=== PATIENT | female | born 1990 | race Caucasian/White ===

== ENCOUNTER 2016-05-28 09:36 | Emergency (ER) | payer BC ==
--- NOTE | ~2016-05-28 | CT4 ---
[facility] A Service of [facility] & [facility] RADIOLOGY TEXT RESULTS PATIENT: SHANA FOFANA LOCATION: SED : 88 UNIT #: [id number] AGE: [address]: Saleem Ponce MD SEX: F ORDER DR: [id number] [place] [id number] E MR#: [id number] Acc #: [id number] NAME: SHANA FOFANA : 1990 SEX: F STUDY DATE/TIME: 05/26/2016 8:34 UNIT: SED ROOM: STUDY DESCRIPTION: CT Abd and Pelv Wo Cont Attending Physician: Saleem Ponce M.D. Ordering Physician: Saleem Ponce M.D. Primary Care Physician: Denise Artegaa A.P.R.N. MEDICAL IMAGING REPORT This report is preliminary unless electronic signature is present. REVISED REPORT SEE ADDENDUM EXAM CT abdomen and pelvis 05/28/2016 HISTORY Abdomen pain left lower quadrant, onset this a.m. hematuria 3+ blood on UA this morning. Negative beta HCG. TECHNIQUE This CT exam was performed with one or more of the following radiation dose reduction techniques: automatic control, adjustment of mA and/or kV according to patient size, and iterative reconstruction. FINDINGS CT abdomen and pelvis performed without administration of oral or intravenous contrast. No prior CTs for comparison. 7-8 mm subpleural nodule right lung base posterolaterally immediately adjacent to diaphragm. Inferior heart and pericardium unremarkable. Liver unremarkable. Gallbladder normal. Spleen upper limits of normal in size measuring about 13 cm in diameter. No focal splenic abnormality is seen. The pancreas, adrenal glands, right kidney and ureter are unremarkable. Left kidney shows mild hydronephrosis and hydroureter to the level of the left ureterovesical junction where there is a 4 mm calculus. No other left-sided renal or ureteral calculi. Mild periureteral inflammatory change but no periureteral or perinephric fluid collection. No indication of cystic or solid mass lesion in kidneys. CT PELVIS: No inguinal adenopathy. Urinary bladder unremarkable beyond the left ureterovesical junction calculus. The uterus is normal in appearance. No free fluid. Bilateral ovarian cysts measuring up to 2.1 cm on left and up to 4 cm on right. No free fluid. No pelvic adenopathy. [facility]. [facility] A Service of [facility] RADIOLOGY TEXT RESULTS PATIENT: SHANA FOFANA [place] [facility] [place] #: [id number] AGE: [address]: Saleem Ponce MD SEX: F ORDER DR: Small retroperitoneal portal and gastrohepatic ligament lymph nodes. In the absence of risk factors, probably in the absence of risk factors, probably benign/reactive in nature. Esophagus, stomach, small bowel, appendix, colon unremarkable. Unopacified vascular structures unremarkable. Degenerative changes in the spine. No acute-appearing bony abnormality. Chronic right L5 pars interarticularis defect. No resulting alignment abnormality. Posterior disc bulge L3-L4. Mild to moderate mass effect on the thecal sac and resulting mild to moderate central spinal canal narrowing. More pronounced central disc protrusion L4-L5. At least moderate central spinal canal narrowing. Posterior disc osteophyte complex asymmetrically more pronounced on the left L5-S1. No spinal stenosis but there is at least moderate narrowing of the left neural foramen. Exiting left L5 nerve irritation or lc impingement is a consideration. IMPRESSION 1. A 4 mm left ureterovesical junction calculus resulting in mild left hydronephrosis and hydroureter. No other renal ureteral or bladder calculi. Mild left ureteral inflammatory change but no fluid collection. No perinephric fluid collection. 2. Gallbladder, pancreas, appendix normal. 3. Bilateral ovarian cysts. Largest of these measures about 4 cm in diameter and is in the right ovary. Given the patient's young age these are favored to be benign physiologic cysts. In light of the size of the dominant right ovarian cyst, 6-week followup with ultrasound to confirm decreasing size or resolution is strongly recommended. 4. Spleen upper limits of normal in size. 5. Small retroperitoneal portal and gastrohepatic ligament lymph nodes. In the absence of risk factors, benign etiology favored. 6. Degenerative changes in the spine more pronounced than anticipated for a patient of this age. See full discussion above. Most pronounced finding is a prominent posterior disc bulge/protrusion at the L4 - L5 level with what appears to be significant mass effect on the thecal sac and probably at least moderate central spinal canal narrowing. See remainder spinal findings above. Correlate with clinical status. Consider further evaluation of lumbar spine with dedicated MRI if the patient is a candidate or CT, depending upon patient's clinical status. Dictated by... Ferdinand Barreto M.D. THIS IS AN ELECTRONICALLY VERIFIED REPORT Ferdinand Barreto M.D. at 05/29/2016 5:36 PM FIORELLA/rnr [facility]. [facility] A Service of [facility] RADIOLOGY TEXT RESULTS PATIENT: SHANA FOFANA LOCATION: SED : 88 UNIT #: [id number] AGE: [address]: Saleem Ponce MD SEX: F ORDER DR: TD: 05/28/2016 13:19 JOB #: [id number] ADDENDUM Approximately 7-8 mm noncalcified nodular density right lung base laterally, immediately adjacent to the diaphragm. Possibly an area of atelectasis. Benign etiology favored given patient's young age. 12-month CT follow up recommended unless there are outside studies demonstrating prolonged stability. JOB: [id number] Dictated by... Ferdinand Barreto M.D. THIS IS AN ELECTRONICALLY VERIFIED REPORT Ferdinand Barreto M.D. at 06/16/2016 6:37 PM FIORELLA/alfonzo TD: 05/28/2016 12:28 JOB #: [id number] CC: Carole/invision Please Delete MEDICAL IMAGING REPORT Page 1 of 1
[~2016-05-28 09:36] MED LIST: BACTRIM DS TABL1 TAB PO; BACTROBAN15 GM TOP; CYCLAFEM1 EACH PO; IBUPROFEN PO; LABETALOL HCL300 MG PO; LEVAQUIN PO; LEVAQUIN750 MG PO; MOTRIN PO; YAZ BCP; ZOFRAN ODT4 MG/UDTAB PO
[2016-05-28 09:42] LABS: URINE SOURCE CLEAN CATCH
[2016-05-28 09:45] LABS: MICRO INDICATED? YES; URINE APPEARANCE CLEAR; URINE BILIRUBIN NEG (NEG); URINE BLOOD 3+ (NEG); URINE COLOR YELLOW; URINE GLUCOSE NEG (NORM); URINE KETONE NEG (NEG); URINE LEUKOCYTE ESTERASE NEG (NEG); URINE NITRATE NEG (NEG); URINE PROTEIN 1+ (NEG); URINE SPECIFIC GRAVITY >=1.030 (1.003-1.035)
[2016-05-28 09:52] LABS: CULTURE INDICATED? NO; URINE BACTERIA NEG (NEG); URINE RBC 25-50 /[HPF] (0-2); URINE WBC 0-2 /[HPF] (0-5)
== END 2016-05-28 12:08 | disposition home or self-care (01) ==
LOC: SED 09:36
PROVIDERS: Emergency Medicine
DX: N13.2 Hydronephrosis with renal and ureteral calculous obstruction (principal); K76.0 Fatty (change of) liver, not elsewhere classified; Z88.0 Allergy status to penicillin; Z88.1 Allergy status to other antibiotic agents
CPT/HCPCS: 74176; 81003; 84703; 96361; 96374; 96375; 99284; J1885; J2405